=== PATIENT | male | born 1960 | race Caucasian/White ===

== ENCOUNTER 2020-02-21 08:13 | Inpatient (IN) ==
--- NOTE | 2019-12-26 14:56 | PAT Medication Instructions ---
Medication Instructions Date of Service December 26, 2019 Home Medications Fish Oil 1 cap PO QAM multivitamin 1 tab PO QAM STOP taking 2 weeks before surgery (or as soon as possible if surgery is within 2 weeks) Fish Oil 1 cap PO QAM DO NOT take the morning of surgery multivitamin 1 tab PO QAM Other Notes If you have any questions please call us at [phone] or [phone] or [phone] or [phone]
--- NOTE | 2019-12-27 08:20 | History & Physical Report ---
Date of Service December 27, 2019 date of surgery: 01/25/20 procedure: Right Total Knee Arthroplasty Assessment & Plan (1) Arthritis of right knee: Risks and benefits of procedure discussed in detail today, patient would like to proceed with a Right total knee replacement at [facility] as scheduled. will obtain PATs at [facility]. Will place on ASA 81mg po bid x 1 month post op, f/u 2 weeks post op for routine post-operative care and x-ray, sooner if having any problems. will make arrangements for HHPT at the time of discharge. At this point in time, has failed conservative measures and would like to proceed with surgical intervention. The risks and benefits have been discussed including, but not limited to, risk of infection, nerve injury, stiffness, loss of motion, failure to improve, etc. Reasonable outcomes and options of treatment were discussed. An explanation of appropriate alternatives to the procedure that may be advantageous were discussed and their risks and benefits, as well as the risks and benefits of not proceeding with treatment. I offered to answer any additional inquiries concerning the treatment involved. All the patient's questions were answered. The patient is agreeable, understanding of the treatment plan and alternatives, and wishes to proceed with the treatment plan. History of Present Illness Chief Complaint: Right knee pain Primary Care Provider: Isaac Rachel Mr Garcia is a 59 year old male who complains of Right knee pain, presents for pre-op evaluation prior to a Right total knee replacement by dr Carolina at [facility]. He complains of pain, crepitus, decreased range of motion and stiffness in the Right knee. He states that the symptoms have been chronic and non-traumatic. Currently the patient states that the symptoms are moderate-severe. The pain is described as aching, sharp and throbbing. The symptoms occur continuously. The symptoms are aggravated by ascending stairs, daily activities, first steps while awake walking. Prior NSAIDs include IBU, Mobic and Aleve. He has been treated with previous Visco injections in the past without much relief. 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; last echo approx 20 years ago History of colon polyps Osteoarthritis Surgical History History of cardiac catheterization 20 years ago - [facility] - - no stents/angioplasty History of colonoscopy History of esophagogastroduodenoscopy (EGD) History of hernia repair as an and again in the 1980s History of tonsillectomy and adenoidectomy Family History Other No family history of adverse response to anesthesia Social History Smoking Status: Never smoker Second Hand Exposure: No; Do You Dip or Chew Tobacco: Yes (1 can every 3 days); Tobacco Cessation Education Requested by Patient: No Hx Alcohol Use: Yes Hx Substance Use: No Preferred Language: Kinyarwanda Communication Ability: Effective Wax Pot Tender Required: No Beliefs That Will Affect Care: None Current Living Situation: Spouse Feels Safe at Home: Yes Safety Concerns: Feels Safe At This Time Assistive Devices: Contacts and Glasses Review of Systems Review of Systems: All systems reviewed & are unremarkable except as noted in HPI & below Constitutional: no fever, no chills and no sweats Respiratory: no cough and no dyspnea Cardiovascular: no chest pain, no dyspnea and no orthopnea Gastrointestinal: no abdominal pain, no nausea and no vomiting Musculoskeletal: as per Subjective / HPI Physical Exam Physical Exam: Ht: 5ft 8in Wt: 74.8kg BP: 118/76 Constitutional: WD/WN, vitals as above no acute distress Respiratory: normal respiratory effort, lungs clear to auscultation no respiratory distress, no labored breathing and does not use accessory muscles Cardiovascular: RRR, no murmur, no edema Gastrointestinal (Abdomen): normal bowel sounds, soft, nontender, no hepatosplenomegaly Musculoskeletal: Knee: + knee abnormal to inspection (Right knee- ), + effusion (+1 effusion), + limited ROM of knee (ROM 0/3/110), + knee ROM with crepitation, + joint line tenderness (medial joint line) and + Jyotsna's sign positive; no deformity, no skin erythema, no ecchymosis, no valgus laxity, no varus laxity, anterior drawer test negative, Nelson's sign negative and pivot shift test negative Results & Data Results & Data ([facility]) Diagnostic Findings right knee x-ray showing complete loss joint space medial compartment with overall varus alignment, there is also narrowing of the lateral compartment and patellofemoral joint. there is osteophyte formation, subchondral sclerosis noted, no loose bodies, no acute bony pathology. overall impression tricompartmental degenerative changes to the right knee.
--- NOTE | 2019-12-27 13:32 | Anesthesiology Consultation ---
Date of Service December 27, 2019 Assessment & Plan (1) Encounter for pre-operative examination: COVID Status: As of 12/26 assessment, patient denies travel to endemic area, known exposure/sick contacts, or symptoms of COVID19. Patient instructed that they and their household members must follow strict social distancing guidelines, wear a mask in public and avoid travel for 14 days prior to surgery. Preoperative COVID19 testing to be completed prior to surgery per surgeon's a rrangements. Patient made aware to self-isolate as much as possible between COVID testing and surgery. Chart Review Chart Review: Acceptable Risk for Surgery (pending surgeon-ordered PCP clearance 01/08) and Patient seen in Pre Admission Testing Teaching & Discussion Instructed NPO after midnight before surgery, except medications with 15 cc of water. Medication instructions provided according to the PAT guidelines. History Surgery Operation Date: 01/25/20 07:00 Proposed Procedures p Right Total Knee Arthroplasty - Thiago Carolina DO Height/Weight Height: 5 ft 8 in Weight: 78.7 kg Allergies Allergy/AdvReac Type Severity Reaction Status Date / Time No Known Allergies Allergy Verified 12/21/19 15:32 Medications Home Medications Medication Instructions Recorded Confirmed Last Taken Fish Oil 1 cap PO QAM 12/21/19 12/21/19 Unknown multivitamin 1 tab PO QAM 12/21/19 12/21/19 Unknown Past Medical History Medical History (Updated 12/28/19 @ 09:50 by Ehsan Ott) Abnormal chest x-ray History of colon polyps Osteoarthritis Exercise / Class Metabolic Activity II 4-5 Yardwork/Stairs/Walk up hill Past Family History Family History Other No family history of adverse response to anesthesia Past Surgical History Surgical History History of cardiac catheterization 20 years ago - [facility] - [facility] - no stents/angioplasty History of colonoscopy History of esophagogastroduodenoscopy (EGD) History of hernia repair as an infant and again in the 1980s History of tonsillectomy and adenoidectomy Past Anesthesia History No Hx of Anesthesia Complications and No Family Hx of Anesthesia Complications History of PONV No Hx of PONV and No Hx of Motion Sickness Social History Smoking Status: Never smoker tobacco type: smokeless tobacco Do You Dip or Chew Tobacco: Yes (1 can every 3 days-- ADVISED NONE AM DOS) Hx Alcohol Use: Yes alcohol intake frequency: a few times a month Hx Substance Use: No substance use type: does not use Review of Systems Pt denies any recent chest pain, shortness of breath, palpitations, cough, fever, URI, or uncontrolled acid reflux. Physical Exam Vital Signs BP: 119/76 P: 60bpm SPO2: 99% RA T: 97.9 F R: 16 ENMT Mouth: + dental restorations (caps on central upper incisors); no chipped teeth and no loose teeth Thyromental Distance: < 3.5 Finger Breadths (3) Mallampati Class: I Neck normal visual inspection and + shortened thyromental distance; neck extension not limited Respiratory normal respiratory effort Auscultation: lungs clear to auscultation bilaterally Cardiovascular Rate/Rhythm: regular rate and regular rhythm Heart Sounds: no murmur Vessels: no carotid bruit Testing Laboratory Results 12/27/19 13:48 12/27/19 13:48 PT 10.9 Seconds (9.0-12.0) 12/27/19 13:48 INR 1.0 (0.9-1.1) 12/27/19 13:48 APTT 26.5 Seconds (21.0-31.0) 12/27/19 13:48 Hemoglobin A1c 5.3 % (4.5-5.6) 12/27/19 13:48 Urine Color Dark Yellow 12/27/19 13:48 Urine Appearance Clear (Clear) 12/27/19 13:48 Urine pH 5.0 (4.5-7.5) 12/27/19 13:48 Ur Specific [place] 1.020 (1.000-1.030) 12/27/19 13:48 Urine Protein Negative (Negative) 12/27/19 13:48 Urine Glucose (UA) Negative (Negative) 12/27/19 13:48 Urine Ketones Negative (Negative) 12/27/19 13:48 Urine Nitrite Negative (Negative) 12/27/19 13:48 Ur Leukocyte Esterase Negative (Negative) 12/27/19 13:48 Blood Type A Positive 12/27/19 13:48 Antibody Screen NEGATIVE 12/27/19 13:48 Electrocardiogram Date: 12/27/19 Findings: + SB @ (57bpm) RBBB. Chest X-Ray Date: 12/27/19 Focal fullness within the right paratracheal stripe measuring 3 cm with mild left tracheal deviation. This could be related to the scoliosis at this location. However, dedicated chest CT with contrast is recommended to exclude a right paratracheal abnormality. This finding was called/faxed to the referring physician following dictation. *This result was called to the surgeon's office, who will arrange for f/u chest CT. Patient also to see PCP on 01/08.
--- NOTE | 2019-12-27 14:10 | XRay Report ---
XR chest Pre-admission PA/Lat HISTORY: Preop. COMPARISON: None. FINDINGS: Focal fullness within the right paratracheal stripe measuring 3 cm. Mild left tracheal mateus ation which could be due to the scoliosis. The lungs are clear. No pleural effusions. No pneumothorax . IMPRESSION: Focal fullness within the right paratracheal stripe measuring 3 cm with mild left tracheal deviation. This could be related to the scoliosis at this location. However, dedicated chest CT with contrast i s recommended to exclude a right paratracheal abnormality. This finding was called/faxed to the refer ring physician following dictation. ACT 112: Positive. There are findings on this exam that require communication between the performing entity and the patient following Patient Test Result Information Act ([place] Act 112) guidelines. Electronically signed by: Aman Silverio M.D. 12/27/2019 2:08 PM
[2019-12-27 14:11] LABS: Appearance Urine Clear (Clear); Bilirubin Urine Negative (Negative); Blood Urine Negative (Negative); Color Urine Dark Yellow; Glucose Urine UA Negative (Negative); Ketones Urine Negative (Negative); Leukocyte Esterase Urine Negative (Negative); Nitrite Urine Negative (Negative); Protein Urine Negative (Negative); Urobilinogen Urine Negative (Negative)
[2019-12-27 14:18] LABS: Basophils # (auto) 0.02 K/uL (0-0.2); Basophils % (auto) 0.3 %; Eosinophils # (auto) 0.21 K/uL (0-0.5); Eosinophils % (auto) 3.6 %; Hemoglobin 14.6 g/dL (14.0-18.0); Immature Granulocytes # (auto) 0.01 K/uL (0.00-0.02); Immature Granulocytes % (auto) 0.2 %; Lymphocytes # (auto) 2.45 K/uL (1.2-3.4); Lymphocytes % (auto) 42.2 %; Mean Corpuscular Hemoglobin 30.4 pg (25-34); Mean Corpuscular Hgb Conc 34.8 g/dL (32-36); Mean Corpuscular Volume 87.5 fL (80-100); Mean Platelet Volume 9.9 fL (7.4-10.4); Monocytes # (auto) 0.33 K/uL (0.11-0.59); Monocytes % (auto) 5.7 %; Neutrophils # (auto) 2.79 K/uL (1.4-6.5); Platelet Count 186 K/uL (130-400); RDW Coefficient of Variation 12.3 % (11.5-14.5); RDW Standard Deviation 39.6 fL (36.4-46.3); White Blood Count 5.81 K/uL (4.8-10.8)
[2019-12-27 14:19] LABS: Estimated Average Glucose 105 mg/dl; Hemoglobin A1C 5.3 % (4.5-5.6)
[2019-12-27 14:29] LABS: Partial Thromboplastin Ratio 0.9; Partial Thromboplastin Time 26.5 Seconds (21.0-31.0); Prothrombin Time 10.9 Seconds (9.0-12.0)
[2019-12-27 16:20] LABS: Albumin Level 3.7 gm/dl (3.4-5.0); BUN Creatinine Ratio 20.1 (10-20); Calcium 8.6 mg/dl (8.5-10.1); Creatinine Clr Calc Pharmacy 104.1 ml/min; Est GFR (African American) 116.9; Est GFR (Non-African American) 100.8; Potassium 4.2 mmol/L (3.5-5.1)
--- NOTE | 2019-12-28 14:17 | Electrocardiogram Report ---
Test Reason : Blood Pressure : / mmHG Vent. Rate : 057 BPM Atrial Rate : 057 BPM P-R Int : 162 ms QRS Dur : 128 ms QT Int : 432 ms P-R-T Axes : 066 079 063 degrees QTc Int : 420 ms Sinus bradycardia Right bundle branch block Abnormal ECG No previous ECGs available Confirmed by Reece Peter ([id number]) on 12/28/2019 2:17:31 PM Referred By: Thiago Carolina Confirmed By:Reece Peter
--- NOTE | 2020-02-03 13:02 | History & Physical Report ---
Date of Service February 03, 2020 date of surgery: 02/21/20 procedure: Right Total Knee Arthroplasty Assessment & Plan (1) Arthritis of right knee: Risks and benefits of procedure discussed in detail today, patient would like to proceed with a Right total knee replacement at [facility] as scheduled. will obtain PATs at [facility]. Will place on ASA 81mg po bid x 1 month post op, f/u 2 weeks post op for routine post-operative care and x-ray, sooner if having any problems. will make arrangements for HHPT at the time of discharge. At this point in time, has failed conservative measures and would like to proceed with surgical intervention. The risks and benefits have been discussed including, but not limited to, risk of infection, nerve injury, stiffness, loss of motion, failure to improve, etc. Reasonable outcomes and options of treatment were discussed. An explanation of appropriate alternatives to the procedure that may be advantageous were discussed and their risks and benefits, as well as the risks and benefits of not proceeding with treatment. I offered to answer any additional inquiries concerning the treatment involved. All the patient's questions were answered. The patient is agreeable, understanding of the treatment plan and alternatives, and wishes to proceed with the treatment plan. History of Present Illness Chief Complaint: Right knee pain Primary Care Provider: Isaac Rachel Mr Garcia is a 59 year old male who complains of Right knee pain, presents for pre-op evaluation prior to a Right total knee replacement by dr Carolina at [facility]. He complains of pain, crepitus, decreased range of motion and stiffness in the Right knee. He states that the symptoms have been chronic and non-traumatic. Cu rrently the patient states that the symptoms are moderate-severe. The pain is described as aching, sharp and throbbing. The symptoms occur continuously. The symptoms are aggravated by ascending stairs, daily activities, first steps while awake walking. Prior NSAIDs include IBU, Mobic and Aleve. He has been treated with previous Visco injections in the past without much relief. Allergies Allergy/AdvReac Type Severity Reaction Status Date / Time No Known Allergies Allergy Verified 12/21/19 15:32 Home Medications Home Medications Medication Instructions Recorded Confirmed Type Fish Oil 1 cap PO QAM 12/21/19 12/21/19 History multivitamin 1 tab PO QAM 09/16/20 09/16/20 History Past Med/Surg History Medical History Abnormal chest x-ray History of colon polyps Osteoarthritis Surgical History History of cardiac catheterization 20 years ago - [facility] - - no stents/angioplasty History of colonoscopy History of esophagogastroduodenoscopy (EGD) History of hernia repair as an infant and again in the 1980s History of tonsillectomy and adenoidectomy Family History Other No family history of adverse response to anesthesia Social History Smoking Status: Never smoker Second Hand Exposure: No; Do You Dip or Chew Tobacco: Yes (1 can every 3 days-- ADVISED NONE AM DOS); Tobacco Cessation Education Requested by Patient: No Hx Alcohol Use: Yes Hx Substance Use: No Preferred Language: [place]orese Communication Ability: Effective Investigation Clerk Required: No Beliefs That Will Affect Care: None Current Living Situation: Spouse Feels Safe at Home: Yes Safety Concerns: Feels Safe At This Time Assistive Devices: Contacts and Glasses Review of Systems Constitutional: as per Subjective / HPI; no fever and no chills Respiratory: no cough and no dyspnea Cardiovascular: no chest pain, no dyspnea and no orthopnea Gastrointestinal: no abdominal pain, no nausea and no vomiting Musculoskeletal: as per Subjective / HPI Physical Exam Physical Exam: Ht: 5ft 8in Wt: 74.8kg BP: 118/76 Constitutional: WD/WN, vitals as above no acute distress Respiratory: normal respiratory effort, lungs clear to auscultation no respiratory distress, no labored breathing and does not use accessory muscles Cardiovascular: RRR, no murmur, no edema Gastrointestinal (Abdomen): normal bowel sounds, soft, nontender, no hepatosplenomegaly Musculoskeletal: Knee: + knee abnormal to inspection (Right knee- ), + effusion (+1 effusion), + limited ROM of knee (ROM 0/3/110), + knee ROM with crepitation, + joint line tenderness (medial joint line) and + Jyotsna's sign positive; no deformity, no skin erythema, no ecchymosis, no valgus laxity, no varus laxity, anterior drawer test negative, Nelson's sign negative and pivot shift test negative Results & Data Results & Data ([facility]) Laboratory Results Laboratory Results WBC 5.81 K/uL (4.8-10.8) 12/27/19 13:48 RBC 4.80 M/uL (4.7-6.1) 12/27/19 13:48 Hgb 14.6 g/dL (14.0-18.0) 12/27/19 13:48 Hct 42.0 % (42-52) 12/27/19 13:48 MCV 87.5 fL (80-100) 12/27/19 13:48 MCH 30.4 pg (25-34) 12/27/19 13:48 MCHC 34.8 g/dL (32-36) 12/27/19 13:48 RDW Std Deviation 39.6 fL (36.4-46.3) 12/27/19 13:48 RDW Coeff of Lissette 12.3 % (11.5-14.5) 12/27/19 13:48 Plt Count 186 K/uL (130-400) 12/27/19 13:48 MPV 9.9 fL (7.4-10.4) 12/27/19 13:48 Immature Gran % (Auto) 0.2 % 12/27/19 13:48 Neut % (Auto) 48.0 % 12/27/19 13:48 Lymph % (Auto) 42.2 % 12/27/19 13:48 [place] % (Auto) 5.7 % 12/27/19 13:48 Eos % (Auto) 3.6 % 12/27/19 13:48 Baso % (Auto) 0.3 % 12/27/19 13:48 Neut # (Auto) 2.79 K/uL (1.4-6.5) 12/27/19 13:48 Lymph # (Auto) 2.45 K/uL (1.2-3.4) 12/27/19 13:48 [place] # (Auto) 0.33 K/uL (0.11-0.59) 12/27/19 13:48 Eos # (Auto) 0.21 K/uL (0-0.5) 12/27/19 13:48 Baso # (Auto) 0.02 K/uL (0-0.2) 12/27/19 13:48 Immature Gran # (Auto) 0.01 K/uL (0.00-0.02) 12/27/19 13:48 PT 10.9 Seconds (9.0-12.0) 12/27/19 13:48 INR 1.0 (0.9-1.1) 12/27/19 13:48 APTT 26.5 Seconds (21.0-31.0) 12/27/19 13:48 PTT Ratio 0.9 12/27/19 13:48 Sodium 140 mmol/L (136-145) 12/27/19 13:48 Potassium 4.2 mmol/L (3.5-5.1) 12/27/19 13:48 Chloride 105 mmol/L (98-107) 12/27/19 13:48 Carbon Dioxide 29 mmol/L (21-32) 12/27/19 13:48 Anion Gap 6.0 (3-11) 12/27/19 13:48 BUN 15 mg/dl (7-18) 12/27/19 13:48 Creatinine 0.73 mg/dl (0.6-1.4) 12/27/19 13:48 Est Cr Clr Drug Dosing 104.1 ml/min 12/27/19 13:48 Est GFR ( Amer) 116.9 12/27/19 13:48 Est GFR (Non-Af Amer) 100.8 12/27/19 13:48 BUN/Creatinine Ratio 20.1 (10-20) H 12/27/19 13:48 Glucose 115 mg/dl (70-99) H 12/27/19 13:48 Estimat Average Glucose 105 mg/dl 12/27/19 13:48 Hemoglobin A1c 5.3 % (4.5-5.6) 12/27/19 13:48 Calcium 8.6 mg/dl (8.5-10.1) 12/27/19 13:48 Albumin 3.7 gm/dl (3.4-5.0) 12/27/19 13:48 Urine Color Dark Yellow 12/27/19 13:48 Urine Appearance Clear (Clear) 12/27/19 13:48 Urine pH 5.0 (4.5-7.5) 12/27/19 13:48 Ur Specific [place] 1.020 (1.000-1.030) 12/27/19 13:48 Urine Protein Negative (Negative) 12/27/19 13:48 Urine Glucose (UA) Negative (Negative) 12/27/19 13:48 Urine Ketones Negative (Negative) 12/27/19 13:48 Urine Blood Negative (Negative) 12/27/19 13:48 Urine Nitrite Negative (Negative) 12/27/19 13:48 Urine Bilirubin Negative (Negative) 12/27/19 13:48 Urine Urobilinogen Negative (Negative) 12/27/19 13:48 Ur Leukocyte Esterase Negative (Negative) 12/27/19 13:48 Blood Type A Positive 12/27/19 13:48 Antibody Screen NEGATIVE 12/27/19 13:48 Diagnostic Findings right knee x-ray showing complete loss joint space medial compartment with overall varus alignment, there is also narrowing of the lateral compartment and patellofemoral joint. there is osteophyte formation, subchondral sclerosis noted, no loose bodies, no acute bony pathology. overall impression tricompartmental degenerative changes to the right knee.
[~2020-02-21 08:13] MED LIST: ACETAMINOPHEN 500 MG TAB PO SCH; BUPIVACAINE 0.5 % 5 MG/1 ML PF 10ML VIAL ONE; CeleBREX 200 MG CAP PO SCH; EPINEPHrine INJ 1 MG/ML AMP ONE; FAMOTIDINE 20 MG TAB PO SCH; GABAPENTIN 600 MG DOSE PO SCH; LR 500ML BOLUS, THEN 15ML/HR IV SCH; METOCLOPRAMIDE HCL 10 MG TABLET PO SCH; ROPIVACAINE 0.5% 5 MG/ML 30 ML VIAL ONE; ROPIVACAINE 0.5% HCL/PF 150 MG, BUPIVACAINE 0.5% MPF 30 ML, EPINEPHrine 30MG/30ML (OR U... INFIL SCH; ROPIVACAINE 0.5% HCL/PF 150 MG, BUPIVACAINE 0.5% MPF 30 ML, EPINEPHrine 30MG/30ML (OR U... INSTIL SCH; TRANEXAMIC ACID 1,000 MG **IV Intra-op IV SCH; TRANEXAMIC ACID 1,000 MG **IV Pre-op IV SCH; ceFAZolin 1000MG 1,000 MG/7.5 ML SYR IV SCH; dexAMETHasone 4 MG TAB PO SCH
[2020-02-21] MEDS ORDERED: fentaNYL citrate 100 MCG/2 ML VIAL ONE (10:43)
[2020-02-21] MEDS ORDERED: MIDAZOLAM HCL 1 MG/ML 2ML VIAL ONE ×2 (10:43)
[2020-02-21] MEDS ORDERED: BACITRACIN INJ 50,000 UNIT VIAL ONE (11:05)
[2020-02-21] MEDS ORDERED: ORTHO JOINT ANESTHETIC ONE (11:05)
--- NOTE | 2020-02-21 11:11 | History & Physical Bridge Note ---
Date of Service February 21, 2020 History & Physical Bridge Note I have examined the patient, reviewed the History & Physical and in the interval since the performance of the History & Physical I have noted the following changes of clinical significance: no changes noted
[2020-02-21] MEDS ORDERED: ATROPINE SULFATE 0.1 MG/ML 10ML SYR IV PRN (11:42)
[2020-02-21] MEDS ORDERED: ePHEDrine sulfate 50 MG/ML AMP IV PRN (11:42)
[2020-02-21] MEDS ORDERED: PROPOFOL IV EMULSION 10 MG/ML 20 ML VIAL IV ONE (12:49)
[2020-02-21] MEDS ORDERED: LIDOCAINE HCL 2% 2 ML VIAL/AMP(20MG/ML) INFIL ONE (12:49)
--- NOTE | 2020-02-21 12:51 | Operative Report ---
Post Operative Report Pre & Post Diagnosis Operation Date: 01/25/20 13:20 <No data on this case meets the specified criteria> Operation Date: 02/21/20 10:20 Pre-Op Diagnosis: Primary Osteoarthritis Right Knee Post-Op Diagnosis: Primary Osteoarthritis Right Knee I identified the patient and participated in the time-out.: Yes Procedure Operation Date: 01/25/20 13:20 <No data on this case meets the specified criteria> Operation Date: 02/21/20 10:20 Actual Procedures p Right Total Knee Arthroplasty(Right) utilizing Scales & Nephew journey 2 patient matched total knee arthroplasty size 6 femur 6 tibia 12 polyethylene 35 oval patella- Thiago Carolina DO Surgeon Thiago Carolina DO Community Outreach Advocate Richie HAQ Estimated Blood Loss 20 Findings Consistent with Post-Op Diagnosis Patient presents severe stage recommend DJD varus alignment [id number] eburnated bone 10 degree flexion contracture marginal osteophytes moderate to large effusion Specimens Bone and cartilage Drains Medium bore Hemovac Anesthesia Type MAC Spinal Regional Complications none Disposition Accompanied Patient To Recovery: No Disposition: Recovery Room Indications Patient presents with severe end-stage DJD right knee varus alignment failed attempted conservative management daily corticosteroid injection Visco supplementation relative rest activity modification bracing patient presents with the above intraoperative findings Description of Procedure After proper prepping and draping of the Right lower extremity anterior midline incision was made over the region of the extensor extensor mechanism after meticulous hemostasis was obtained and maintained in subcutaneous tissues a medial parapatellar incision was made The patella was subluxed lateralward the medial lateral gutter were cleaned from any hypertrophic synovitis and scar tissue of the distal femoral block was placed and the distal femoral osteotomy cut was made subsequently the chamfers anterior and posterior osteotomy cuts were made utilizing the 4-in-1 block the tibia was subsequently subluxed anteriorward medial and ateral meniscal remnants were excised in their entirety remnants of the anterior and posterior cruciate ligaments were excised in their entirety excellent exposure of the proximal tibia was obtained the tibial osteotomy guide was placed on the proximal tibial osteotomy cut was made once again the knee was irrigated with copious amounts of sterile saline solution the patella was subsequently everted lateralward thickened scar tissue around the patella was removed the patella was subsequently cut utilizing a freehand technique and was drilled prepared for final preparation and placement of patella socially flexion-extension gaps were checked and the equal and symmetric trials were placed to the appropriate femoral and tibial trials with poly-spacer being placed for equal flexion and extension gaps and full range of motion including extension to 0 and flexion to 140 the trial components after having been taken to recovery range of motion was subsequently removed meticulous hemostasis was obtained and maintained subsequently a knee block injection of joint cocktail including ropivacaine 0.5% 150 mg. Bupivacaine 0.5% epinephrine 1-200,030 mL's toradol 30 mg dexamethasone 4 mg ketamine 10 mg clonidine 100 micrograms normal saline solution 30 mg was infiltrated into the soft tissues of the posterior knee medial lateral gutters and periosteal synovium special attention was paid to protect neurovascular structures at all times subsequently trial components having been removed the knee was irrigated with sterile saline solution. debris was removed the proximal tibia was subsequently prepared and was made ready for the placement of the tibial component tibial component was also cemented and tamped into position the femoral component was subsequently placed and cemented in the position the patellar component was subsequently cemented in position because hemostasis once again obtained and maintained wound having been thoroughly irrigated with debridement and debridement lavage was performed as well as a medial parapatellar incision closed with #1 Vicryl in interrupted fashion subcutaneous was closed with #2 Vicryl skin was closed with skin clips. PA-C was necessary for prepping and drapping as well as wound closure of deep fascia Sub cutaneous tissue and skin and was necessary for the case. A sterile compressive dressing was placed patient was taken to recovery in stable condition of report dictated by Ge I attest to the content of the Intraoperative Record and any orders documented therein. Any exceptions are noted below. I attest to the content of the Intraoperative Record and any orders documented therein. Any exceptions are noted below.
--- NOTE | 2020-02-21 14:05 | XRay Report ---
TWO VIEWS RIGHT KNEE CLINICAL HISTORY: Postoperative examination. FINDINGS: AP and crosstable lateral portable views of the right knee are obtained. A right knee arthr oplasty is in near anatomic alignment. There has been undersurface remodeling of the patella. No acut e fracture is seen. There are expected postoperative changes around the knee including a surgical char in, soft tissue edema, and subcutaneous gas. IMPRESSION: Expected postoperative changes status post right knee arthroplasty. No acute fracture is seen. ACT 112: Negative or not required by law. Electronically signed by: Florin Akins M.D. 02/21/2020 2:04 PM
--- NOTE | 2020-02-21 14:13 | Anesthesiology Progress Note ---
Date of Service February 21, 2020 Anesthesia Post Procedure Vital Signs Vital Signs: Temp Pulse Pulse Resp BP Pulse Ox 02/21/20 14:10 65 16 132/68 100 02/21/20 14:00 36.5 C 67 16 108/70 100 02/21/20 13:50 81 16 121/72 100 02/21/20 13:40 72 10 L 112/68 100 02/21/20 13:32 36.6 C 73 10 L 116/63 100 02/21/20 10:28 37 C 80 18 142/94 H 100 Transfer of Care Handoff Completed per policy Notes Mental Status: alert / awake / arousable Patient Amnestic to Procedure: Yes Nausea / Vomiting: adequately controlled Pain: adequately controlled Airway Patency, RR, SpO2: stable & adequate BP & HR: stable & adequate Hydration State: stable & adequate Neuraxial Anesthesia: was administered and sensory block is resolving Anesthetic Complications: no major complications apparent
[2020-02-21] MEDS ORDERED: bisacodyL 10 MG SUPP PR PRN (14:27)
[2020-02-21] MEDS ORDERED: oxyCODONE HCL IR 5 MG TAB (IMMEDIATE RELEASE) PO PRN (14:27)
[2020-02-21] MEDS ORDERED: ONDANSETRON INJ 2 MG/ML 2 ML VIAL IV PRN (14:27)
[2020-02-21] MEDS ORDERED: MAGNESIUM HYDROXIDE SUSP 30 ML UDC PO PRN (14:27)
[2020-02-21] MEDS ORDERED: NALOXONE HCL 0.4 MG/1 ML VIAL/CARP IV PRN (14:27)
[2020-02-21] MEDS ORDERED: HYDROmorphone INJ 0.5 MG/0.5 ML SYR IV PRN (14:27)
[2020-02-21] MEDS: SODIUM CHLORIDE 0.9% 1000ML 1,000 ML IV SCH ×2 (14:41→23:18)
[2020-02-21] MEDS: ACETAMINOPHEN 500 MG TAB PO SCH ×2 (15:22→23:15)
[2020-02-21] MEDS: FERROUS GLUCONATE 324 MG TAB PO SCH (16:37)
[2020-02-21] MEDS: ceFAZolin 1000MG 1,000 MG/7.5 ML SYR IV SCH (19:33)
[2020-02-21] MEDS: ASPIRIN 81 MG ECTAB PO SCH (19:34)
[2020-02-21] MEDS: DOCUSATE SODIUM 100 MG CAP PO SCH (19:34)
[2020-02-21] MEDS ORDERED: SENNA 8.6 MG TAB PO SCH (21:00)
[2020-02-22] MEDS: ceFAZolin 1000MG 1,000 MG/7.5 ML SYR IV SCH (04:04)
[2020-02-22 06:54] LABS: Hematocrit (blood only) 39.3 % (42-52); Hemoglobin 13.5 g/dL (14.0-18.0); Mean Corpuscular Hemoglobin 29.8 pg (25-34); Mean Corpuscular Hgb Conc 34.4 g/dL (32-36); Mean Corpuscular Volume 86.8 fL (80-100); Mean Platelet Volume 9.8 fL (7.4-10.4); Platelet Count 189 K/uL (130-400); RDW Coefficient of Variation 12.1 % (11.5-14.5); RDW Standard Deviation 38.7 fL (36.4-46.3); Red Blood Count 4.53 M/uL (4.7-6.1); White Blood Count 13.37 K/uL (4.8-10.8)
[2020-02-22 07:11] LABS: Est GFR (African American) 118.2; Potassium 3.9 mmol/L (3.5-5.1)
[2020-02-22 07:12] LABS: BUN Creatinine Ratio 25.5 (10-20); Calcium 8.6 mg/dl (8.5-10.1)
[2020-02-22] MEDS: ACETAMINOPHEN 500 MG TAB PO SCH (07:42)
[2020-02-22] MEDS: DOCUSATE SODIUM 100 MG CAP PO SCH (08:37)
[2020-02-22] MEDS: ASPIRIN 81 MG ECTAB PO SCH (08:37)
[2020-02-22] MEDS: FERROUS GLUCONATE 324 MG TAB PO SCH (08:37)
--- NOTE | 2020-02-22 08:37 | Orthopedic Progress Note ---
Date of Service February 22, 2020 Assessment & Plan (1) Arthritis of right knee: Postop day 1 status post right total knee arthroplasty. PT/OT protocols. Weightbearing as tolerated. DVT prophylaxis-aspirin p.o. twice daily, SCDs, REEMA skaggs. Pain management as written. DC planning-patient is planning for home health services upon discharge. Admission and Anticipated Discharge Date Admission Date: February 21, 2020 Subjective Postop day 1 Patient sitting up in his bed awake and alert. Dates he had some numbness and decreased mobility of his right foot last night however that has returned and he has no problems at this point. Denies any shortness of breath, chest pain, lightheadedness. Pain is controlled. Physical Exam Physical Exam: Dressings are clean, dry, and intact. Calves are soft nontender. Neurovascular is intact. Toes are mobile. He has good dorsiflexion and plantarflexion of the right foot and ankle. Hemovac drainage was approximately 400 cc from the previous shift. Results & Data ([facility] [place]) Vital Signs (Past 12 Hours) Vital Signs Temp Pulse Resp BP Pulse Ox 02/22/20 07:36 36.9 C 70 18 113/74 95 02/22/20 03:02 36.6 C 72 16 115/72 97 02/22/20 00:01 36.6 C 76 16 122/76 97 02/21/20 21:28 36.6 C 70 18 117/71 96 Laboratory Results Laboratory Results WBC 13.37 K/uL (4.8-10.8) H 02/22/20 06:14 RBC 4.53 M/uL (4.7-6.1) L 02/22/20 06:14 Hgb 13.5 g/dL (14.0-18.0) L 02/22/20 06:14 Hct 39.3 % (42-52) L 02/22/20 06:14 MCV 86.8 fL (80-100) 02/22/20 06:14 MCH 29.8 pg (25-34) 02/22/20 06:14 MCHC 34.4 g/dL (32-36) 02/22/20 06:14 RDW Std Deviation 38.7 fL (36.4-46.3) 02/22/20 06:14 RDW Coeff of Lissette 12.1 % (11.5-14.5) 02/22/20 06:14 Plt Count 189 K/uL (130-400) 02/22/20 06:14 MPV 9.8 fL (7.4-10.4) 02/22/20 06:14 Immature Gran % (Auto) 0.2 % 12/27/19 13:48 Neut % (Auto) 48.0 % 12/27/19 13:48 Lymph % (Auto) 42.2 % 12/27/19 13:48 [place] % (Auto) 5.7 % 12/27/19 13:48 Eos % (Auto) 3.6 % 12/27/19 13:48 Baso % (Auto) 0.3 % 12/27/19 13:48 Neut # (Auto) 2.79 K/uL (1.4-6.5) 12/27/19 13:48 Lymph # (Auto) 2.45 K/uL (1.2-3.4) 12/27/19 13:48 [place] # (Auto) 0.33 K/uL (0.11-0.59) 12/27/19 13:48 Eos # (Auto) 0.21 K/uL (0-0.5) 12/27/19 13:48 Baso # (Auto) 0.02 K/uL (0-0.2) 12/27/19 13:48 Immature Gran # (Auto) 0.01 K/uL (0.00-0.02) 12/27/19 13:48 PT 10.9 Seconds (9.0-12.0) 12/27/19 13:48 INR 1.0 (0.9-1.1) 12/27/19 13:48 APTT 26.5 Seconds (21.0-31.0) 12/27/19 13:48 PTT Ratio 0.9 12/27/19 13:48 Sodium 142 mmol/L (136-145) 02/22/20 06:14 Potassium 3.9 mmol/L (3.5-5.1) 02/22/20 06:14 Chloride 111 mmol/L (98-107) H 02/22/20 06:14 Carbon Dioxide 26 mmol/L (21-32) 02/22/20 06:14 Anion Gap 5.0 (3-11) 02/22/20 06:14 BUN 18 mg/dl (7-18) 02/22/20 06:14 Creatinine 0.71 mg/dl (0.6-1.4) 02/22/20 06:14 Est Cr Clr Drug Dosing 107.0 ml/min 02/22/20 06:14 Est GFR ( Amer) 118.2 02/22/20 06:14 Est GFR (Non-Af Amer) 102.0 02/22/20 06:14 BUN/Creatinine Ratio 25.5 (10-20) H 02/22/20 06:14 Glucose 96 mg/dl (70-99) 02/22/20 06:14 Estimat Average Glucose 105 mg/dl 12/27/19 13:48 Hemoglobin A1c 5.3 % (4.5-5.6) 12/27/19 13:48 Calcium 8.6 mg/dl (8.5-10.1) 02/22/20 06:14 Albumin 3.7 gm/dl (3.4-5.0) 12/27/19 13:48 Urine Color Dark Yellow 12/27/19 13:48 Urine Appearance Clear (Clear) 12/27/19 13:48 Urine pH 5.0 (4.5-7.5) 12/27/19 13:48 Ur Specific [place] 1.020 (1.000-1.030) 12/27/19 13:48 Urine Protein Negative (Negative) 12/27/19 13:48 Urine Glucose (UA) Negative (Negative) 12/27/19 13:48 Urine Ketones Negative (Negative) 12/27/19 13:48 Urine Blood Negative (Negative) 12/27/19 13:48 Urine Nitrite Negative (Negative) 12/27/19 13:48 Urine Bilirubin Negative (Negative) 12/27/19 13:48 Urine Urobilinogen Negative (Negative) 12/27/19 13:48 Ur Leukocyte Esterase Negative (Negative) 12/27/19 13:48 Hepatitis C Ab Screen Neg (Neg) 02/21/20 10:10 Blood Type A Positive 12/27/19 13:48 Antibody Screen NEGATIVE 12/27/19 13:48
[2020-02-22] MEDS ORDERED: MULTIVITAMIN TAB PO SCH (09:00)
[2020-02-22] MEDS ORDERED: KETOROLAC TROMETHAMINE 15 MG/ML VIAL IV PRN (09:00)
--- NOTE | 2020-02-27 15:05 | Discharge Summary ---
Date of Service February 27, 2020 Admission HPI Per Admitting Provider Mr Garcia is a 59 year old male who complains of Right knee pain, presents for pre-op evaluation prior to a Right total knee replacement by dr Carolina at [facility]. He complains of pain, crepitus, decreased range of motion and stiffness in the Right knee. He states that the symptoms have been chronic and non-traumatic. Currently the patient states that the symptoms are moderate-severe. The pain is described as aching, sharp and throbbing. The symptoms occur continuously. The symptoms are aggravated by ascending stairs, daily activities, first steps while awake walking. Prior NSAIDs include IBU, Mobic and Aleve. He has been treated with previous Visco injections in the past without much relief. Admission Exam Per Admitting Provider Physical Exam: Ht: 5ft 8in Wt: 74.8kg BP: 118/76 Constitutional: WD/WN, vitals as above no acute distress Respiratory: normal respiratory effort, lungs clear to auscultation no respiratory distress, no labored breathing and does not use accessory muscles Cardiovascular: RRR, no murmur, no edema Gastrointestinal (Abdomen): normal bowel sounds, soft, nontender, no hepatosplenomegaly Musculoskeletal: Knee: + knee abnormal to inspection (Right knee- ), + effusion (+1 effusion), + limited ROM of knee (ROM 0/3/110), + knee ROM with crepitation, + joint line tenderness (medial joint line) and + Jyotsna's sign positive; no deformity, no skin erythema, no ecchymosis, no valgus laxity, no varus laxity, anterior drawer test negative, Nelson's sign negative and pivot shift test negative Principal Diagnosis Right Knee Djd Discharge Data Allergies Allergy/AdvReac Type Severity Reaction Status Date / Time No Known Allergies Allergy Verified 02/21/20 10:27 Consultations 02/21/20 14:27 Consult Case Management - Discharge Planning Routine Procedures Performed Operation Date: 01/25/20 13:20 <No data on this case meets the specified criteria> Operation Date: 02/21/20 10:20 Actual Procedures p Right Total Knee Arthroplasty(Right) - Thiago Carolina, Ordered Studies 01/25/20 05:00 US - OR guided needle placemen Routine 02/21/20 05:00 US - OR guided needle placemen Routine Hospital Course (1) Arthritis of right knee: Date of Service February 22, 2020 Assessment & Plan (1) Arthritis of right knee: Postop day 1 status post right total knee arthroplasty. PT/OT protocols. Weightbearing as tolerated. DVT prophylaxis-aspirin p.o. twice daily, SCDs, REEMA skaggs. Pain management as written. DC planning-patient is planning for home health services upon discharge. Admission and Anticipated Discharge Date Admission Date: February 21, 2020 Subjective Postop day 1 Patient sitting up in his bed awake and alert. Dates he had some numbness and decreased mobility of his right foot last night however that has returned and he has no problems at this point. Denies any shortness of breath, chest pain, lightheadedness. Pain is controlled. Physical Exam Physical Exam: Dressings are clean, dry, and intact. Calves are soft nontender. Neurovascular is intact. Toes are mobile. He has good dorsiflexion and plantarflexion of the right foot and ankle. Hemovac drainage was approximately 400 cc from the previous shift. Pt ambulated over 500' and was progressing with his PT. VSS. Hgb was stable. It was felt he was stable for discharge to home. Results & Data ([facility]) Vital Signs (Past 12 Hours) Vital Signs Temp Pulse Resp BP Pulse Ox 02/22/20 07:36 36.9 C 70 18 113/74 95 02/22/20 03:02 36.6 C 72 16 115/72 97 02/22/20 00:01 36.6 C 76 16 122/76 97 02/21/20 21:28 36.6 C 70 18 117/71 96 Laboratory Results Laboratory Results WBC 13.37 K/uL (4.8-10.8) H 02/22/20 06:14 RBC 4.53 M/uL (4.7-6.1) L 02/22/20 06:14 Hgb 13.5 g/dL (14.0-18.0) L 02/22/20 06:14 Hct 39.3 % (42-52) L 02/22/20 06:14 Total Time Total Time Spent Total Time Spent (In Minutes): 5 Discharge Plan Discharge Items Patient Disposition: Home - Home Health Services Reason For Visit: Primary Osteoarthritis Right Knee Discharge Diagnosis: Osteoarthritis right knee Activity: Per Instructions section Lifting: Wait until after follow-up appointment Weightbearing: Right weightbearing Weightbearing Comment: As tolerated with walker Non-emergency contact: Surgeon Call non-emergency contact if: your pain is not controlled, your temperature is above 101.5, your wound has increased redness and your wound has increased drainage Follow-up/Referrals: Isaac Rachel M.D. [Primary Care Provider] - Diet: Regular Addtl Attending Provider Instructions: ACTIVITY RECOMMENDATIONS: F/U IN OUR OFFICE IN [place] TOMORROW 02/23/20 AT 1:00 PM TO HAVE YOUR DRAIN PULLED. SELF CARE INSTRUCTIONS AFTER TOTAL KNEE REPLACEMENT A. You may need to continue a physical therapy program after discharge from the hospital. There are several options available to you. Your doctor will assist you in selecting the best one for you. 1. An out-patient facility 2 to 3 times a week for therapy or home therapy. 2. Continue working on all exercises taught to you in the hospital. Your goals should be to increase bending of your knee to 90 degrees and beyond and to fully straighten your knee. B. You may progress at your own pace from walking with a walker or crutches to a cane; then to no assistive devices. C. Make walking a part of your daily routine. Be up as much as comfortable with rest periods throughout the day. Rest with leg elevation is very important. Use the ice wrap frequently for the first 3-4 weeks. D. There are no restrictions on activities. You may ride in a car, shop, participate in molder shoulder pad and all social activities. E. Wear the long elastic stockings (REEMA hose) 20 hours a day for 2 weeks after surgery. They can be removed several times a day for laundering and for a bath. F. You may shower, no tub baths until cleared by your doctor. SPECIAL CARE INSTRUCTIONS: VERY IMPORTANT TO READ AND REVIEW A. There are a few signs you need to watch for after you are home. Call [facility] if you notice any of the followin. Increased severe knee pain. Some pain is expected especially when you exercise. 2. Increased swelling in your leg or knee; pain or swelling of the calf muscle in either lower leg. 3. Any fluid drainage from the incision. 4. Shortness of breath or chest pain. B. Please call [facility] at if you have any concerns or questions about your operation or recovery. The doctor or his nurse will return your call promptly. C. You must take antibiotics before dental work, bladder, bowel or other surgery. Your doctor will provide you with a permanent care to carry describing this precaution. IMPORTANT: * REMEMBER TO TAKE ASPIRIN, 81 MG, TWICE DAILY FOR 4 WEEKS UNLESS OTHERWISE DIRECTED. THIS IS YOUR BLOOD THINNER. * CALL IF INCREASED PAIN, REDNESS, DRAINAGE OR FEVER GREATER THAT 101. * WEAR REEMA HOSE 20 HOURS PER DAY FOR 2 WEEKS. * DERMABOND Prineo- This is a mesh tape dressing that is covered with glue. It should remain in place until the incision is properly healed, usually 10-14 days. This dressing is designed to naturally slough off. You may trim the excess mesh tape as it peels off. Incision may be briefly wet in a shower. Dry immediately by blotting with a clean, dry towel. Do not bath or swim until instructed by your doctor. Do not scratch, rub, or pick at the dressing. Do not apply any topical ointments or lotions until dressing is completely removed and/or instructed by your doctor. There may be a small piece of suture material at one end of your incision. Do not pull or trim this. If it is bothersome or catching on clothing, you may cover it with a band-aid. Call the office with any questions about your wound. . FOLLOW UP VISIT: If appointment is not already scheduled: Please call [facility] to make a follow-up appointment for 2 weeks after your surgery at . Pending Studies at Discharge: No Stand-Alone Forms: My [facility], Opioid Pain Management, Smoking Cessation Medications and DC Order Prescriptions: New aspirin 81 mg Tablet,Delayed Release (Dr/Ec) 81 mg PO BID 30 Days Qty: 60 RF: 0 acetaminophen 500 mg Tablet 1,000 mg PO Q8H 14 Days Qty: 84 RF: 0 celecoxib [Celebrex] 200 mg capsule 200 mg PO BID PRN (Reason: pain) Qty: 60 RF: 0 polyethylene glycol 3350 [Miralax] 17 gram powder in packet 17 g PO DAILY PRN (Reason: constipation) Qty: 5 RF: 0 cefadroxil 500 mg capsule 500 mg PO BID Qty: 14 RF: 0 Continued multivitamin Tablet 1 tab PO QAM RF: 0 Discontinued Fish Oil 1 cap PO QAM RF: 0 Discharge Orders: Discharge Order (Routine); Ordered 02/22/20 Ordered By: Avery Potter/Other Patient Handouts: Total Knee Replacement, Discharge Instructions Caring for ... Admission Data Admit Date/Time: 02/21/20 13:38 Attending Provider: Thiago Carolina Admit Provider: Thiago Carolina Primary Care Provider: Isaac Rachel Other Providers: Paulino Lara Other Interventions: Discharge Summary Assessment (RN) Last Done: 02/22/20 13:14
== END 2020-02-22 15:11 | disposition home health service (06) | DRG 470 ==
LOC: ASU 08:13 → 3E 08:13 → OBSVTOIN 13:38